=== PATIENT | female | born 2000 | race Caucasian/White ===

== ENCOUNTER 2023-08-05 14:20 | Emergency (ER) | payer BC, MEDICAID, SELFPAY ==
[2023-08-05 14:27] VITALS: BP 106/74; PULSE 74; RESP 18; TEMP 36.8; O2SAT 100
--- NOTE | 2023-08-05 14:45 | DI.CT_ITS ---
Exam(s) CT ABDOMEN PELVIS W EXAM: CT ABDOMEN PELVIS W CLINICAL HISTORY: right sided abdominal pain TECHNIQUE: Imaging Protocol: Axial computed tomography images with coronal and sagittal reformatted images were created and reviewed CONTRAST MATERIAL: Intravenous: Omnipaque 350 Contrast volume:70 mL Oral: No COMPARISON: No exams were available for comparison FINDINGS: ABDOMEN: Lung Bases: Normal where visualized. Liver: Normal density. No measurable mass. Portal, Superior Mesenteric, and Splenic Veins: Unremarkable. Gallbladder and Biliary Tract: The gallbladder is contracted. No stones or biliary ductal dilatation is seen. Pancreas: Normal density, no abnormal calcifications or inflammatory process. Spleen: Normal. Adrenals: No masses seen. Kidneys: Normal size, contour and axis. No radiodense stones or obstructive uropathy. No masses seen. Abdominal Aorta: Abdominal portion non-dilated. Bowel: No obstruction or bowel wall thickening. Appendix is unremarkable. Peritoneal Cavity: There is a trace amount of free fluid in the pelvis. This may be physiologic. No free air. Lymph Nodes: Within normal limits. Bones: Within normal limits for the patient's age. Soft Tissues: Unremarkable. PELVIS: Bladder: There is diffuse thickening of the wall of the urinary bladder. Reproductive Organs: There is a 1.4 cm follicle in the right ovary. Lymph Nodes: Within normal limits. Bones: Within normal limits for the patient's age. IMPRESSION: 1. No acute abdominal or pelvic process. 2. Normal appendix. 3. No evidence of nephrolithiasis or hydronephrosis. 4. No evidence of cholelithiasis. RADIATION DOSE DELIVERED: 498.13mGy.cm Total DLP DATA REPOSITORY: All CT scans at this facility are submitted to the National Radiology Data Registry (NRDR) Dose Index Registry (DIR) with the [employer] ([employer]). RADIATION OPTIMIZATION: All CT scans at this facility use at least one of these dose optimization te chniques: automated exposure control; mA and/or kV adjustment per patient size (includes targeted exa ms where dose is matched to clinical indication); or iterative reconstruction.
--- NOTE | 2023-08-05 14:49 | W.ED.GENAD ---
Discharge Plan Disposition Patient Disposition: Home Condition: Stable Discharge Details Clinical Impression: Abdominal pain, Nausea & vomiting Primary Care Provider: Unknown,Unknown ED Provider: Sandro Hou Home Meds and New Rx's Prescriptions: New prochlorperazine maleate [Compazine] 10 mg tablet 10 mg PO TID PRN (Reason: nausea and vomiting) Qty: 30 0RF Discharge Instructions Instructions: Acute Nausea and Vomiting (ED), Abdominal Pain (ED) Additional Instructions: There was no significant concerns on your labs or imaging today. You had mild elevation in your lipase which is a measure of your pancreas inflammation you can take 1000mg tylenol and 600mg ibuprofen every 6 hours as needed if not better within a week follow up with your primary care provider if you feel more ill, have severe worsening pain or persistent vomiting return to the emergency department Medical Decision Making 23 yo female who denies chronic medical problems and prior abdominal surgeries comes in with cc of right sided abdominal pain and n/v for 2-3 days. Denies fevers, chills, chest pain, dyspnea, urinary symptoms, vaginal bleeding or d/c. She went to [facility] yesterday and states had fluids and labs and was told everything was normal and d/c'd with zofran. Came in today with continued pain and n/v despite zofran. Stable on arrival and in no distress. HAs a soft nondistended abdomen with tenderness in the ruq and rlq without guarding or rebound. Unclear etiology of symptoms, given continued symptoms despite zofran will proceed with hcg, cbc, cmp, lipase and ct abd/pelvis to evaluate for possible appendicitis vs gallbladder pathology labs show mild elecation in lipase, ct without significant findings other then mild intrahepatic ductal prominence. She feels much better and has no abdominal tenderness now so do not feel further emergent testing or admission indicated, advised to f/u with her pcp and return precautions given Differential Diagnosis Differential Diagnosis: appendicitis, gastritis, cholecystitis Imaging Data Radiologic Study: Attestation: I personally reviewed and interpreted this imaging study as follows: Imaging: CT Scan Radiologist's impression: IMPRESSION: 1. No renal stone or hydronephrosis. 2. I suspect physiologic free fluid in the pelvis. 3. No bowel obstruction or free air. 4. Mild intrahepatic ductal prominence with a collapsed gallbladder but no stones or choledocholithiasis. Lab Data Lab results reviewed: Yes I reviewed the patient's lab results. HPI General Mode of arrival: ambulatory. Date/Time Provider Initiated Documentation: 08/05/23 14:21. Limitations to Documentation: no limitations. Information obtained by: patient. History of Present Illness 23 year old F presents to the emergency department with the chief complaint of n/v, described as moderate, Patient started experiencing this day(s) (3) and it has been intermittent. No relieving factors improve symptom(s), No exacerbating factors reported . Patient notes denies fever/chills. Patient did receive the following treatments prior to arrival, none Related Data Home Medications Medication Instructions Recorded Confirmed prochlorperazine maleate 10 mg 10 mg PO TID PRN nausea and 08/05/23 tablet (Compazine) vomiting #30 tabs Previous Rx's Medication Instructions Recorded prochlorperazine maleate 10 mg 10 mg PO TID PRN nausea and 08/05/23 tablet (Compazine) vomiting #30 tabs Allergies Allergy/AdvReac Type Severity Reaction Status Date / Time No Known Allergies Allergy Unverified 08/05/23 14:31 General Stated Complaint: Abd Prob CARON: 3 Review of Systems All systems reviewed & are unremarkable except as noted in HPI and below Constitutional Constitutional: Denies chills, Denies fever(s) and Denies weakness Cardiovascular Cardiovascular: Denies chest pain and Denies dyspnea Respiratory Respiratory: Denies cough and Denies dyspnea Gastrointestinal Gastrointestinal: Reports abdominal pain, Reports nausea and Reports vomiting Musculoskeletal Musculoskeletal: Denies joint swelling Neurologic Neurologic: Denies weakness Endocrine Endocrine: Denies cold intolerance PFSH All Active Problems (Updated 08/05/23 @ 16:01 by Sandro Hou MD) Abdominal pain (Acute) Nausea & vomiting (Acute) Social History Smoking risk assessment performed?: No Exam Const General: no acute distress Orientation: alert HENMT Head: normal to inspection Ears: external ears normal General nose exam: external nose normal Mouth: moist mucous membranes Eyes General: appearance normal, both eyes and all related structures Neck Neck: normal visual inspection Resp Effort & Inspection: normal respiratory effort and able to speak in complete sentences Cardio Rate: regular rate GI Palpation: soft and tender Skin General skin exam: no rashes or lesions noted Neuro General: patient alert and patient oriented x3 Extrem General: normal to inspection Psych Mental Status: mental status grossly normal Course Vital Signs Vital signs: Vital Signs Temperature 36.8 C 08/05/23 14:27 Pulse 74 08/05/23 14:27 Respiratory Rate 18 08/05/23 14:27 Blood Pressure 106/74 08/05/23 14:27 Pulse Oximetry 100 08/05/23 14:27 Temperature 36.8 C 08/05/23 14:27 Temperature Source Oral 08/05/23 14:27 Pulse 74 08/05/23 14:27 Respiratory Rate 18 08/05/23 14:27 Blood Pressure 106/74 08/05/23 14:27 Blood Pressure Position Sitting 08/05/23 14:27 Pulse Oximetry 100 08/05/23 14:27 Oxygen Delivery Method Room Air 08/05/23 14:27 Oxygen Flow Rate 0 08/05/23 14:27 Pain Level 5 08/05/23 14:27
[2023-08-05 14:54] LABS: Bilirubin Negative (Negative); Blood Trace-lysed (Negative); Clarity Sl Cloudy (Clear); Glucose Negative (Negative); Ketones Negative (Negative); Leukocyte Esterase Trace (Negative); Nitrite Negative (Negative)
[2023-08-05 15:02] LABS: Abs Immature Grans 0.05 10^3/uL (0.0-0.06); Absolute Basophil Count 0.04 10^3/uL (0.0-0.2); Absolute Eosinophil Count 0.02 10^3/uL (0.0-0.7); Absolute Neutrophil Count 9.84 10^3/uL (1.2-6.7); Basophils % 0.3; Eosinophils % 0.2; HCT 43.2 % (36.0-46.0); HGB 14.2 g/dL (11.2-15.7); Immature Grans % 0.4; Lymphocytes % 13.2; MCH 27.8 pg (27.0-33.0); MCHC 32.9 % (32.0-36.0); MCV 85 fL (80-95); MPV 8.7 fL (8.0-11.0); Monocytes % 4.9; Platelet Count 302 10^3/uL (130-400); RBC 5.11 10^6/uL (3.93-5.22); RDW 12.9 % (11.7-14.6); RDW-SD 39.8 fL; WBC 12.15 10^3/uL (4.4-10.8)
[2023-08-05] MEDS: Normal Saline 1,000 ML 1000 ML IV (15:10)
[2023-08-05] MEDS: Ketorolac 15 MG/ML VIAL IVP (15:10)
[2023-08-05] MEDS: Prochlorperazine 10 MG/2 ML VIAL IVP (15:10)
[2023-08-05 15:11] LABS: Bacteria Few HPF (Negative); C & S Indicated? Yes; Casts Negative LPF (Negative); Crystals Negative HPF (Negative); Epithelial Cells Few HPF (Negative); Mucus Negative (Negative); RBC 0-2 HPF (0-2)
[2023-08-05 15:20] LABS: Lipase 172 U/L (16-77)
[2023-08-05 15:21] LABS: HCG Qual (Serum) Negative
[2023-08-05 15:29] LABS: ALT 24 U/L (14-59); AST 16 U/L (15-37); Albumin 4.2 g/dL (3.4-5.0); Alkaline Phosphatase 88 U/L (46-116); Anion Gap 8.5 mmol/L (3-11); BUN 8 mg/dL (7-18); CO2 28.5 mmol/L (21.0-32.0); CREATININE 0.7 mg/dL (0.55-1.02); Calcium 9.3 mg/dL (8.5-10.1); Chloride 100 mmol/L (98-107); Estimated GFR 126.11 (mL/min/1.73m2); Glucose 107 mg/dL (74-106); Potassium 3.2 mmol/L (3.5-5.1); Sodium 137 mmol/L (136-145); Total Protein 8.5 g/dL (6.4-8.2)
[2023-08-05] MEDS: Omnipaque 350 MG/ML 100 ML BTL 70 ML IJ (15:34)
[2023-08-05] MEDS: Normal Saline - Diluent 50 ML VIAL IJ (15:34)
--- NOTE | 2023-08-05 15:53 | DI.VRAD_ITS ---
PROCEDURE INFORMATION: Exam: CT Abdomen And Pelvis With Contrast Exam date and time: 08/05/2023 3:25 PM Age: 23 years old Clinical indication: Localized; Patient HX: Right sided abdominal pain TECHNIQUE: Imaging protocol: Computed tomography of the abdomen and pelvis with contrast. COMPARISON: No relevant prior studies available. FINDINGS: Limitations: None. Lungs: Unremarkable. Liver: Mild intrahepatic ductal prominence. No focal liver lesions. Gallbladder and bile ducts: Collapsed gallbladder without stones or choledocholithiasis. No dilatation of the common bile duct. Pancreas: Normal. No ductal dilation. Spleen: Normal. No splenomegaly. Adrenal glands: Normal. No mass. Kidneys and ureters: No renal stones or hydronephrosis. Stomach and bowel: Mild retained stool in the colon without bowel obstruction. Appendix: Normal appendix. Intraperitoneal space: Free fluid the pelvis can be physiologic in younger females. No free air. Vasculature: Unremarkable. No abdominal aortic aneurysm. Lymph nodes: Unremarkable. No enlarged lymph nodes. Urinary bladder: Unremarkable as visualized. Reproductive: No worrisome adnexal or uterine lesions. Bones/joints: Transitional anatomy at the lumbosacral junction with limited retrolisthesis and mild bulging of the disc. No acute fracture. Soft tissues: Unremarkable. IMPRESSION: 1. No renal stone or hydronephrosis. 2. I suspect physiologic free fluid in the pelvis. 3. No bowel obstruction or free air. 4. Mild intrahepatic ductal prominence with a collapsed gallbladder but no stones or choledocholithiasis. Dictated and Authenticated by: Jayjay Geronimo MD. Ordering:MYRIAM Jo MD
--- NOTE | 2023-08-08 09:18 | NUR.NOTE ---
Accessed Pts chart to add medication to the Culture result page.
--- NOTE | 2023-08-08 14:21 | W.ED.FU ---
Follow Up Plan: Reviewed patient's urine culture, likely contaminated specimen, checked in with patient and feeling symptomatic improvement, in fact asymptomatic from a urinary standpoint, will not place patient on antibiotics at this time, return precautions reviewed
== END 2023-08-05 16:24 | disposition home or self-care (01) ==
LOC: ER 16:14
PROVIDERS: Emergency Provider Emergency Medicine
DX: R10.31 Right lower quadrant pain (principal); R10.11 Right upper quadrant pain; R11.2 Nausea with vomiting, unspecified
CPT/HCPCS: 36415; 80053; 81025; 83690; 87077; 96361; 96374; 96375; 99285; 74177; 81003; 81015; 83735; 84703; 85025; 87086; 87186; 99284; J0780; J1885; J3490